=== PATIENT | female | born 1990 | race Two or more races ===

== ENCOUNTER 2019-01-21 22:07 | Emergency (ER) | payer SELFPAY ==
[~2019-01-21] VITALS: Ht 149.9 cm; Wt 52.8 kg
[2019-01-21 22:29] VITALS: BP 112/71
[2019-01-21 22:58] LABS: Basophils # (auto) 0.1 uL; Basophils % (auto) 0.6 % (0.0-2.0); Eosinophils # (auto) 0.5 uL; Eosinophils % (auto) 4.9 % (0.0-7.0); Hematocrit 34.5 % (36.0-46.0); Hemoglobin 11.7 g/dL (12.2-16.2); Lymphocytes % (auto) 31.1 % (10.0-50.0); Mean Corpuscular Hemoglobin 29.8 pg (28.0-32.0); Mean Corpuscular Hgb Conc. 33.8 g/dL (32.0-36.0); Mean Corpuscular Volume 88.1 fL (80.0-100.0); Monocytes # (auto) 0.7 uL; Monocytes % (auto) 7.1 % (0.0-12.0); Neutrophils # (auto) 5.4 uL; Neutrophils % (auto) 56.3 % (37.0-80.0); Platelet Count (auto) 235 10^3/uL (140-450); Red Blood Cells 3.92 10^6/uL (4.0-5.20); Red Cell Distribution Width 15.2 % (11.8-14.3); White Blood Cell 9.5 10^3/uL (4.4-10.8)
[2019-01-21 23:14] LABS: Urine Bacteria FEW /hpf (None Seen); Urine Blood Negative /uL (Negative); Urine Specific Gravity 1.017 (1.001-1.035); Urine WBC 2 /hpf (0 - 5)
[2019-01-21 23:18] LABS: Alanine Aminotransferase 30 U/L (13-56); Albumin 3.3 g/dL (3.4-5.0); Anion Gap 8 (5-15); Aspartate Aminotransferase 22 U/L (15-37); BUN/Creatinine Ratio 13.6; Blood Urea Nitrogen 9 mg/dL (7-18); Calcium 8.4 mg/dL (8.5-10.1); Carbon Dioxide 26 mmol/L (21-32); Chloride 108 mmol/L (98-107); GFR African American 137 mL/min; GFR Non-African American 113 mL/min; Glucose 82 mg/dL (74-106); Lipase 146 U/L (73-393); Potassium 4.1 mmol/L (3.5-5.1); Sodium 142 mmol/L (136-145)
[2019-01-21 23:21] LABS: Alkaline Phosphatase 58 U/L (45-117); Bilirubin, Total < 0.1 mg/dL (0.2-1.0); Total Protein 6.6 g/dL (6.4-8.2)
== END 2019-01-22 02:09 | disposition left against medical advice (07) ==
LOC: EDBD 22:12 → ER 22:12
DX: R50.9 Fever, unspecified (principal); R10.9 Unspecified abdominal pain; Z53.21 Procedure and treatment not carried out due to patient leaving prior to being seen by health care provider
CPT/HCPCS: 36415; 80053; 81001; 81025; 83690; 84702; 85025

== ENCOUNTER 2019-05-05 09:27 | Emergency (ER) | payer MEDICAID ==
[~2019-05-05] VITALS: Ht 149.9 cm; Wt 49.0 kg
[2019-05-05 09:35] VITALS: BP 109/64
== END 2019-05-05 10:20 | disposition home or self-care (01) ==
LOC: ER 09:28
DX: L02.414 Cutaneous abscess of left upper limb (principal)

== ENCOUNTER 2019-08-15 16:11 | Observation (INO) | payer MEDICAID, OTHER ==
[~2019-08-15] VITALS: Ht 152.4 cm; Wt 61.2 kg
[2019-08-15 17:16] VITALS: BP 108/69
[2019-08-15] MEDS ORDERED: DOCU-94 PO (19:24)
[2019-08-15] MEDS ORDERED: FOLI1TAB6 PO (19:24)
[2019-08-15] MEDS ORDERED: MULTCAP45 PO (19:24)
[2019-08-15] MEDS ORDERED: PREN-153 OR (19:24)
== END 2019-08-15 19:05 | disposition home or self-care (01) | DRG 566 ==
LOC: ER 16:11 → LDRP 17:20
PROVIDERS: ADMIT Obstetrics & Gynecology; ATTEND Obstetrics & Gynecology
DX: O26.892 Other specified pregnancy related conditions, second trimester (principal); M54.9 Dorsalgia, unspecified; R10.31 Right lower quadrant pain; R42 Dizziness and giddiness; Z3A.22 22 weeks gestation of pregnancy
CPT/HCPCS: 59025; 81002; 99284; G0378

== ENCOUNTER 2019-09-28 17:33 | Observation (INO) | payer OTHER ==
[~2019-09-28] VITALS: Ht 152.4 cm; Wt 61.2 kg
[~2019-09-28 17:33] MED LIST: DOCU-94 PO; FOLI1TAB6 PO; MULTCAP45 PO; PREN-153 OR
[2019-09-28 17:56] VITALS: BP 126/68
[2019-09-28 19:25] LABS: Alcohol, Urine < 3.0 mg/dL (0-5); Amphetamine Screen, Urine NEGATIVE (NEGATIVE); Barbiturate Scree,Urine NEGATIVE (NEGATIVE); Benzodiazephine Screen, Urine NEGATIVE (NEGATIVE); Cannabinoid Screen, Urine NEGATIVE (NEGATIVE); Cocaine Screen, Urine NEGATIVE (NEGATIVE); Opiate Scree,Urine NEGATIVE (NEGATIVE); Phencyclidine Screen, Urine NEGATIVE (NEGATIVE)
== END 2019-09-28 20:57 | disposition home or self-care (01) | DRG 566 ==
LOC: ER 17:33 → LDRP 17:34
PROVIDERS: ADMIT Obstetrics & Gynecology; ATTEND Obstetrics & Gynecology
DX: O36.8130 Decreased fetal movements, third trimester, not applicable or unspecified (principal); D89.9 Disorder involving the immune mechanism, unspecified; O99.113 Other diseases of the blood and blood-forming organs and certain disorders involving the immune mechanism complicating pregnancy, third trimester; Z3A.28 28 weeks gestation of pregnancy
CPT/HCPCS: 59025; 76805; 80307; 81002; G0378

== ENCOUNTER 2019-10-30 19:40 | Observation (INO) | payer OTHER | END 2019-10-30 22:53 | disposition home or self-care (01) | DRG 566 | LOC: LDRP 19:40 | PROVIDERS: ADMIT Specialist; ATTEND Specialist | DX: O62.9 Abnormality of forces of labor, unspecified (principal); O21.2 Late vomiting of pregnancy; Z3A.31 31 weeks gestation of pregnancy | CPT/HCPCS: 59025; 76815; 81002; G0378 ==

== ENCOUNTER 2019-11-22 20:10 | Observation (INO) | payer OTHER ==
[2019-11-22 21:06] LABS: Alcohol, Urine < 3.0 mg/dL (0-10); Amphetamine Screen, Urine NEGATIVE (NEGATIVE); Barbiturate Scree,Urine NEGATIVE (NEGATIVE); Benzodiazephine Screen, Urine NEGATIVE (NEGATIVE); Cannabinoid Screen, Urine NEGATIVE (NEGATIVE); Cocaine Screen, Urine NEGATIVE (NEGATIVE); Opiate Scree,Urine NEGATIVE (NEGATIVE); Phencyclidine Screen, Urine NEGATIVE (NEGATIVE)
[2019-11-22 21:17] LABS: Urine Amorphous Crystal FEW /hpf (None Seen); Urine Blood Negative /uL (Negative); Urine Mucus FEW (None Seen); Urine Specific Gravity 1.007 (1.001-1.035); Urine WBC 21 /hpf (0 - 5)
[2019-11-22 21:23] LABS: Urine Bacteria FEW /hpf (None Seen)
[2019-11-22] MEDS ORDERED: DIPHENOXYLATE W/ATROPINE 2.5 MG TAB PO ONE (21:30)
[2019-11-22] MEDS ORDERED: ONDANSETRON HCL 4 MG/2 ML VIAL IV ONE (21:30)
[2019-11-22] MEDS ORDERED: DIPHENOXYLATE W/ATROPINE 2.5 MG TAB ONE (22:13)
[2019-11-22] MEDS ORDERED: LACTATED RINGER'S 1,000 ML IV ONE (22:14)
[2019-11-22 23:19] LABS: Basophils # (auto) 0 10 ^3/uL (0-0.2); Basophils % (auto) 0.3 % (0.0-2.0); Eosinophils # (auto) 0.2 10 ^3/uL (0-0.8); Eosinophils % (auto) 1.8 % (0.0-7.0); Hematocrit 31.8 % (36.0-46.0); Lymphocytes # (auto) 2.3 10 ^3/uL (0.4-5.4); Lymphocytes % (auto) 21.5 % (10.0-50.0); Mean Corpuscular Hemoglobin 30.2 pg (28.0-32.0); Mean Corpuscular Hgb Conc. 34.6 g/dL (32.0-36.0); Mean Corpuscular Volume 87.2 fL (80.0-100.0); Monocytes # (auto) 0.8 10 ^3/uL (0-1.3); Monocytes % (auto) 7.3 % (0.0-12.0); Neutrophils # (auto) 7.4 10 ^3/uL (1.6-8.6); Neutrophils % (auto) 69.1 % (37.0-80.0); Nucleated Red Blood Cells % 0.1 %; Platelet Count (auto) 184 10^3/uL (140-450); Red Blood Cells 3.65 10^6/uL (4.0-5.20); Red Cell Distribution Width 14.2 % (11.8-14.3); White Blood Cell 10.6 10^3/uL (4.4-10.8)
[2019-11-22 23:35] LABS: Albumin 2.5 g/dL (3.4-5.0); Calcium 8.4 mg/dL (8.5-10.1); Potassium 3.3 mmol/L (3.5-5.1)
[2019-11-22 23:37] LABS: Bilirubin, Total 0.2 mg/dL (0.2-1.0); Total Protein 6.3 g/dL (6.4-8.2)
[2019-11-22 23:53] LABS: BUN/Creatinine Ratio 8.9
[2019-11-23] MEDS ORDERED: POTASSIUM CHL 20 Meq TABLET PO ONE
== END 2019-11-23 00:22 | disposition home or self-care (01) | DRG 566 ==
LOC: LDRP 20:10
PROVIDERS: ADMIT Specialist; ATTEND Specialist
DX: O21.8 Other vomiting complicating pregnancy (principal); R10.9 Unspecified abdominal pain; R19.7 Diarrhea, unspecified; Z3A.36 36 weeks gestation of pregnancy
CPT/HCPCS: 36415; 59025; 76818; 80053; 80307; 81001; 81002; 82962; 85025; 96361; 96374; G0378; J2405

== ENCOUNTER 2019-11-23 15:05 | Observation (INO) | payer OTHER ==
[2019-11-23 16:41] LABS: Amphetamine Screen, Urine NEGATIVE (NEGATIVE); Barbiturate Scree,Urine NEGATIVE (NEGATIVE); Benzodiazephine Screen, Urine NEGATIVE (NEGATIVE); Cannabinoid Screen, Urine NEGATIVE (NEGATIVE); Cocaine Screen, Urine NEGATIVE (NEGATIVE); Opiate Scree,Urine NEGATIVE (NEGATIVE); Phencyclidine Screen, Urine NEGATIVE (NEGATIVE)
[2019-11-23 17:02] LABS: Alcohol, Urine < 3.0 mg/dL (0-10)
== END 2019-11-23 20:20 | disposition home or self-care (01) | DRG 566 ==
LOC: LDRP 15:05
PROVIDERS: ADMIT Specialist; ATTEND Specialist
DX: O26.893 Other specified pregnancy related conditions, third trimester (principal); M79.89 Other specified soft tissue disorders; R19.7 Diarrhea, unspecified; R11.2 Nausea with vomiting, unspecified; Z3A.36 36 weeks gestation of pregnancy
CPT/HCPCS: 59025; 76817; 76818; 80307; 81002; G0378

== ENCOUNTER 2019-12-27 19:44 | Emergency (ER) | payer MEDICAID, OTHER ==
[~2019-12-27] VITALS: Ht 152.4 cm; Wt 54.4 kg
[2019-12-27 21:25] LABS: Basophils # (auto) 0.1 10 ^3/uL (0-0.2); Basophils % (auto) 0.2 % (0.0-2.0); Eosinophils # (auto) 0.1 10 ^3/uL (0-0.8); Eosinophils % (auto) 0.4 % (0.0-7.0); Hematocrit 36.1 % (36.0-46.0); Hemoglobin 11.6 g/dL (12.2-16.2); Lymphocytes # (auto) 1.8 10 ^3/uL (0.4-5.4); Lymphocytes % (auto) 8.7 % (10.0-50.0); Mean Corpuscular Hemoglobin 27.9 pg (28.0-32.0); Mean Corpuscular Hgb Conc. 32.2 g/dL (32.0-36.0); Mean Corpuscular Volume 86.5 fL (80.0-100.0); Monocytes # (auto) 0.6 10 ^3/uL (0-1.3); Neutrophils # (auto) 18.2 10 ^3/uL (1.6-8.6); Neutrophils % (auto) 87.7 % (37.0-80.0); Platelet Count (auto) 390 10^3/uL (140-450); Red Blood Cells 4.17 10^6/uL (4.0-5.20); Red Cell Distribution Width 15.6 % (11.8-14.3); White Blood Cell 20.7 10^3/uL (4.4-10.8)
[2019-12-27 21:37] LABS: INR 1.11 (0.9-1.15); Partial Thromboplastin Time 26.4 sec (23.64-32.05)
[2019-12-27 21:46] LABS: Calcium 8.2 mg/dL (8.5-10.1); Potassium 4.1 mmol/L (3.5-5.1)
[2019-12-27 21:48] LABS: BUN/Creatinine Ratio 21.2
[2019-12-27 21:51] LABS: Bilirubin, Total 0.2 mg/dL (0.2-1.0); Total Protein 6.7 g/dL (6.4-8.2)
[2019-12-27 22:31] VITALS: BP 106/64
[2019-12-27] MEDS ORDERED: cefTRIAXone 1GM/50ML D5W 50 ML IV ONE (22:45)
[2019-12-27] MEDS ORDERED: HYDROcodone-ACET 5/325MG TAB PO ONE (22:45)
[2019-12-27] MEDS ORDERED: METHYLERGONOVINE MALEATE 0.2 MG/ML AMP IM ONE (23:00)
== END 2019-12-28 01:00 | disposition home or self-care (01) ==
LOC: ER 19:44 → EDBD 19:44 → ER 12-28 01:00
DX: O72.1 Other immediate postpartum hemorrhage (principal); N93.8 Other specified abnormal uterine and vaginal bleeding; D72.829 Elevated white blood cell count, unspecified
CPT/HCPCS: 36415; 76856; 80053; 85025; 85610; 85730; 96365; 96372; 99284; J0696; J2210

== ENCOUNTER 2021-10-03 15:37 | Observation (INO) | payer OTHER ==
[~2021-10-03] VITALS: Ht 152.4 cm; Wt 73.5 kg
[~2021-10-03 15:37] MED LIST changes: -PREN-153 OR; +PREN1TAB71 OR
[2021-10-03 16:40] LABS: Urine Bacteria FEW /hpf (None Seen); Urine Blood Negative /uL (Negative); Urine Mucus FEW (None Seen); Urine Specific Gravity 1.026 (1.001-1.035); Urine WBC 13 /hpf (0 - 5)
[2021-10-03] MEDS ORDERED: NITR-87 PO (16:50)
[2021-10-03] MEDS ORDERED: NITROFURANTOIN 100 mg CAP PO ONE (17:00)
[2021-10-03 17:05] VITALS: BP 109/52
== END 2021-10-03 19:17 | disposition home or self-care (01) ==
LOC: ER 15:37 → LDRP 17:19
PROVIDERS: ADMIT Obstetrics & Gynecology; ATTEND Obstetrics & Gynecology
DX: O26.893 Other specified pregnancy related conditions, third trimester (principal); R19.00 Intra-abdominal and pelvic swelling, mass and lump, unspecified site; R10.9 Unspecified abdominal pain; O23.43 Unspecified infection of urinary tract in pregnancy, third trimester; O99.613 Diseases of the digestive system complicating pregnancy, third trimester; K42.9 Umbilical hernia without obstruction or gangrene; Z3A.38 38 weeks gestation of pregnancy; Z79.899 Other long term (current) drug therapy
CPT/HCPCS: 59025; 81001; 81002; 99284; G0378

== ENCOUNTER 2022-10-17 09:52 | Emergency (ER) | payer OTHER ==
[~2022-10-17] VITALS: Ht 152.4 cm; Wt 58.0 kg
[~2022-10-17 09:52] MED LIST changes: +NITR-87 PO
[2022-10-17 10:54] LABS: Urine Bacteria FEW /hpf (None Seen); Urine Blood 3+ /uL (Negative); Urine Mucus FEW (None Seen); Urine Specific Gravity 1.027 (1.001-1.035); Urine WBC 7 /hpf (0 - 5)
[2022-10-17 10:58] LABS: Basophils # (auto) 0 10 ^3/uL (0-0.2); Basophils % (auto) 0.5 % (0.0-2.0); Eosinophils # (auto) 0.2 10 ^3/uL (0-0.8); Eosinophils % (auto) 2.7 % (0.0-7.0); Hemoglobin 13.1 g/dL (12.2-16.2); Lymphocytes # (auto) 2.4 10 ^3/uL (0.4-5.4); Lymphocytes % (auto) 31.8 % (10.0-50.0); Mean Corpuscular Hemoglobin 29.6 pg (28.0-32.0); Mean Corpuscular Hgb Conc. 34.4 g/dL (32.0-36.0); Mean Corpuscular Volume 86.2 fL (80.0-100.0); Monocytes # (auto) 0.5 10 ^3/uL (0-1.3); Monocytes % (auto) 6.4 % (0.0-12.0); Neutrophils # (auto) 4.4 10 ^3/uL (1.6-8.6); Neutrophils % (auto) 58.6 % (37.0-80.0); Nucleated Red Blood Cells % 0.1 %; Red Blood Cells 4.41 10^6/uL (4.0-5.20); Red Cell Distribution Width 14.5 % (11.8-14.3); White Blood Cell 7.5 10^3/uL (4.4-10.8)
[2022-10-17 11:03] LABS: Albumin 3.6 g/dL (3.4-5.0); BUN/Creatinine Ratio 18.6 (10.0-20.0); Calcium 9.1 mg/dL (8.5-10.1); Potassium 3.9 mmol/L (3.5-5.1)
[2022-10-17 11:05] LABS: Bilirubin, Total 0.3 mg/dL (0.2-1.0); Total Protein 7.1 g/dL (6.4-8.2)
[2022-10-17] MEDS ORDERED: CEPH-510 PO (13:30)
[2022-10-17 15:50] VITALS: BP 96/56
== END 2022-10-17 15:55 | disposition home or self-care (01) ==
LOC: ER 09:52
DX: O23.41 Unspecified infection of urinary tract in pregnancy, first trimester (principal); N39.0 Urinary tract infection, site not specified; R10.2 Pelvic and perineal pain; Z79.899 Other long term (current) drug therapy; Z3A.01 Less than 8 weeks gestation of pregnancy
CPT/HCPCS: 36415; 76801; 76817; 80053; 81001; 84702; 85025

== ENCOUNTER 2023-10-30 03:45 | Emergency (ER) | payer OTHER ==
[~2023-10-30] VITALS: Ht 152.4 cm; Wt 58.2 kg
[~2023-10-30 03:45] MED LIST changes: +CEPH-510 PO; +FOLI-119 PO; -FOLI1TAB6 PO
[2023-10-30 03:59] VITALS: BP 103/53; PULSE 63; RESP 16; O2SAT 98
[2023-10-30 04:26] LABS: Basophils # (auto) 0.1 10 ^3/uL (0-0.2); Basophils % (auto) 0.8 % (0.0-2.0); Eosinophils # (auto) 0.2 10 ^3/uL (0-0.8); Eosinophils % (auto) 2.3 % (0.0-7.0); Hematocrit 38.7 % (36.0-46.0); Hemoglobin 13.2 g/dL (12.2-16.2); Lymphocytes # (auto) 2.5 10 ^3/uL (0.4-5.4); Mean Corpuscular Hemoglobin 29.1 pg (28.0-32.0); Mean Corpuscular Volume 85.7 fL (80.0-100.0); Monocytes # (auto) 0.7 10 ^3/uL (0-1.3); Monocytes % (auto) 7.1 % (0.0-12.0); Neutrophils # (auto) 6.4 10 ^3/uL (1.6-8.6); Neutrophils % (auto) 64.8 % (37.0-80.0); Red Blood Cells 4.52 10^6/uL (4.0-5.20); Red Cell Distribution Width 15.1 % (11.8-14.3); White Blood Cell 9.9 10^3/uL (4.4-10.8)
[2023-10-30 04:45] LABS: Alanine Aminotransferase 14 U/L (7-40); Albumin 4.4 g/dL (3.2-4.8); Alkaline Phosphatase 52 U/L (46-116); Anion Gap 8 (5-15); Aspartate Aminotransferase 29 U/L (13-40); BUN/Creatinine Ratio 20.5 (10.0-20.0); Blood Urea Nitrogen 16 mg/dL (9-23); Calcium 9.9 mg/dL (8.5-10.1); Carbon Dioxide 25 mmol/L (20-30); Chloride 108 mmol/L (98-107); Glucose 82 mg/dL (74-106); Potassium 3.6 mmol/L (3.5-5.1); Sodium 141 mmol/L (136-145)
[2023-10-30] MEDS ORDERED: DICYCLOMINE HCL (10MG/ML) 2 ML AMPULE IM ONE (04:45)
[2023-10-30] MEDS ORDERED: ONDANSETRON ODT 4 MG TAB PO ONE (04:45)
[2023-10-30 04:46] LABS: Bilirubin, Total 0.3 mg/dL (0.2-1.0)
[2023-10-30 04:49] LABS: Urine Bacteria None Seen /hpf (None Seen)
[2023-10-30] MEDS ORDERED: ZOFR4T PO (04:57)
[2023-10-30] MEDS ORDERED: DICY10CA PO (04:57)
[2023-10-30 04:59] LABS: Urine Blood Negative /uL (Negative); Urine Clarity Turbid (Clear); Urine Color Light-Yellow (Yellow); Urine Protein, UAD Negative (Negative); Urine Specific Gravity 1.023 (1.001-1.035); Urine Urobilinogen Normal (Negative); Urine WBC 1 /hpf (0 - 5)
[2023-10-30 13:18] LABS: Lipase 54 U/L (12-53)
== END 2023-10-30 08:05 | disposition left against medical advice (07) ==
LOC: ER 03:45
DX: K80.20 Calculus of gallbladder without cholecystitis without obstruction (principal); R10.2 Pelvic and perineal pain
CPT/HCPCS: 36415; 80053; 81001; 83690; 84702; 85025

== ENCOUNTER 2024-02-25 00:19 | Inpatient (IN) | payer OTHER ==
[~2024-02-25] VITALS: Ht 167.6 cm; Wt 46.6 kg
[~2024-02-25 00:19] MED LIST changes: +DICY10CA PO; +ZOFR4T PO
[2024-02-25 00:59] VITALS: PULSE 60; O2SAT 98
[2024-02-25 01:17] LABS: Basophils # (auto) 0.1 10 ^3/uL (0-0.2); Basophils % (auto) 0.7 % (0.0-2.0); Eosinophils # (auto) 0.2 10 ^3/uL (0-0.8); Eosinophils % (auto) 3.4 % (0.0-7.0); Hematocrit 33.1 % (36.0-46.0); Hemoglobin 11.7 g/dL (12.2-16.2); Lymphocytes # (auto) 3.4 10 ^3/uL (0.4-5.4); Lymphocytes % (auto) 46.5 % (10.0-50.0); Mean Corpuscular Hemoglobin 30.1 pg (28.0-32.0); Mean Corpuscular Hgb Conc. 35.5 g/dL (32.0-36.0); Mean Corpuscular Volume 84.9 fL (80.0-100.0); Monocytes # (auto) 0.6 10 ^3/uL (0-1.3); Monocytes % (auto) 7.9 % (0.0-12.0); Neutrophils % (auto) 41.5 % (37.0-80.0); Platelet Count (auto) 116 10^3/uL (140-450); Red Cell Distribution Width 14.3 % (11.8-14.3); White Blood Cell 7.3 10^3/uL (4.4-10.8)
[2024-02-25] MEDS: MORPHINE SULFATE 4 MG/ML SYR/VIAL IV ONE (01:22)
[2024-02-25] MEDS: ONDANSETRON HCL 4 MG/2 ML VIAL IV ONE ×2 (01:23→03:18)
[2024-02-25 01:28] LABS: Alanine Aminotransferase 13 U/L (7-40); Albumin 3.4 g/dL (3.2-4.8); Alkaline Phosphatase 40 U/L (46-116); Anion Gap 5 (5-15); Aspartate Aminotransferase 14 U/L (13-40); BUN/Creatinine Ratio 16.2 (10.0-20.0); Bilirubin, Total 0.4 mg/dL (0.2-1.0); Blood Urea Nitrogen 11 mg/dL (9-23); Calcium 8.6 mg/dL (8.7-10.4); Carbon Dioxide 23 mmol/L (20-30); Chloride 112 mmol/L (98-107); Glucose 93 mg/dL (74-106); Potassium 2.6 mmol/L (3.5-5.1); Sodium 140 mmol/L (136-145); Total Protein 5.7 g/dL (5.7-8.2)
[2024-02-25] MEDS: POTASSIUM CHL 20 Meq TABLET PO ONE (03:12)
[2024-02-25] MEDS: POTASSIUM CHL 20MEQ/100ML 100 ML IV ONE (03:12)
[2024-02-25] MEDS: SODIUM CHLORIDE 0.9% 1,000 ML IV ONE (05:14)
[2024-02-25] MEDS: levoFLOXacin 500MG 100 ML IV ONE (06:13)
[2024-02-25 06:49] LABS: Basophils # (auto) 0 10 ^3/uL (0-0.2); Basophils % (auto) 0.7 % (0.0-2.0); Eosinophils # (auto) 0.2 10 ^3/uL (0-0.8); Eosinophils % (auto) 3.1 % (0.0-7.0); Hemoglobin 11.5 g/dL (12.2-16.2); Lymphocytes # (auto) 2.2 10 ^3/uL (0.4-5.4); Lymphocytes % (auto) 33.7 % (10.0-50.0); Mean Corpuscular Hemoglobin 29.6 pg (28.0-32.0); Mean Corpuscular Hgb Conc. 34.8 g/dL (32.0-36.0); Mean Corpuscular Volume 84.9 fL (80.0-100.0); Monocytes # (auto) 0.5 10 ^3/uL (0-1.3); Monocytes % (auto) 8.5 % (0.0-12.0); Neutrophils # (auto) 3.4 10 ^3/uL (1.6-8.6); Nucleated Red Blood Cells % 0.1 %; Platelet Count (auto) 106 10^3/uL (140-450); Red Blood Cells 3.88 10^6/uL (4.0-5.20); Red Cell Distribution Width 14.2 % (11.8-14.3); White Blood Cell 6.4 10^3/uL (4.4-10.8)
[2024-02-25 07:06] LABS: Alanine Aminotransferase 21 U/L (7-40); Albumin 3.3 g/dL (3.2-4.8); Alkaline Phosphatase 38 U/L (46-116); Anion Gap 7 (5-15); Aspartate Aminotransferase 15 U/L (13-40); BUN/Creatinine Ratio 19.4 (10.0-20.0); Blood Urea Nitrogen 12 mg/dL (9-23); Calcium 8.3 mg/dL (8.7-10.4); Carbon Dioxide 21 mmol/L (20-30); Chloride 114 mmol/L (98-107); Glucose 84 mg/dL (74-106); Potassium 2.9 mmol/L (3.5-5.1); Sodium 142 mmol/L (136-145)
[2024-02-25 07:07] LABS: Bilirubin, Total 0.5 mg/dL (0.2-1.0); Total Protein 5.5 g/dL (5.7-8.2)
[2024-02-25 10:00] VITALS: PULSE 63; RESP 12; O2SAT 100
[2024-02-25] MEDS ORDERED: SODIUM CHLORIDE 0.9% 1,000 ML IV SCH (11:30)
[2024-02-25] MEDS ORDERED: ONDANSETRON HCL 4 MG/2 ML VIAL IV PRN ×2 (11:30→11:45)
[2024-02-25] MEDS ORDERED: HYDROcodone-ACET 5/325MG TAB PO PRN ×2 (11:30→11:45)
[2024-02-25] MEDS ORDERED: MAGNESIUM SULFATE 1GM/100ML 100 ML IV SCH (12:00)
[2024-02-25] MEDS: PANTOPRAZOLE 40 MG/10 ML VIAL INJ IV ONE (12:31)
[2024-02-25] MEDS: MAGNESIUM SULFATE 1GM/100ML 100 ML IV SCH (12:32)
[2024-02-25] MEDS: SODIUM CHLORIDE 0.9% 1,000 ML IV SCH (12:47)
[2024-02-25 14:15] LABS: Urine Bacteria None Seen /hpf (None Seen)
[2024-02-25 14:26] LABS: Urine Blood 3+ /uL (Negative); Urine Clarity Turbid (Clear); Urine Color Yellow (Yellow); Urine Mucus FEW (None Seen); Urine Protein, UAD TRACE (Negative); Urine Specific Gravity 1.024 (1.001-1.035); Urine Urobilinogen Normal (Negative); Urine WBC 19 /hpf (0 - 5)
[2024-02-25 17:55] VITALS: PULSE 68; RESP 17; O2SAT 94
[2024-02-25 17:56] VITALS: BP 103/41; PULSE 68; RESP 17; TEMP 98; O2SAT 94
[2024-02-25 19:34] LABS: Chloride 111 mmol/L (98-107); Potassium 3.3 mmol/L (3.5-5.1); Sodium 139 mmol/L (136-145)
[2024-02-25 19:35] LABS: Anion Gap 8 (5-15); Carbon Dioxide 20 mmol/L (20-30)
[2024-02-25 19:36] LABS: Calcium 8.4 mg/dL (8.7-10.4)
[2024-02-25 19:40] LABS: Glucose 82 mg/dL (74-106)
[2024-02-25 19:42] LABS: BUN/Creatinine Ratio 9.6 (10.0-20.0); Blood Urea Nitrogen < 5 mg/dL (9-23)
[2024-02-25 21:00] VITALS: BP 92/60; PULSE 63; RESP 16; TEMP 98.2; O2SAT 99
[2024-02-26] VITALS (7 sets, daily range): BP systolic 90–107; BP diastolic 54–66; PULSE 54–79; RESP 16–17; TEMP 97.7–98.2; O2SAT 94–100
[2024-02-26 05:53] LABS: Basophils # (auto) 0 10 ^3/uL (0-0.2); Basophils % (auto) 0.8 % (0.0-2.0); Eosinophils # (auto) 0.3 10 ^3/uL (0-0.8); Eosinophils % (auto) 6.3 % (0.0-7.0); Hemoglobin 11.2 g/dL (12.2-16.2); Lymphocytes # (auto) 2.8 10 ^3/uL (0.4-5.4); Lymphocytes % (auto) 52.7 % (10.0-50.0); Mean Corpuscular Hgb Conc. 35.1 g/dL (32.0-36.0); Mean Corpuscular Volume 85.6 fL (80.0-100.0); Monocytes # (auto) 0.4 10 ^3/uL (0-1.3); Monocytes % (auto) 7.6 % (0.0-12.0); Neutrophils # (auto) 1.7 10 ^3/uL (1.6-8.6); Neutrophils % (auto) 32.6 % (37.0-80.0); Nucleated Red Blood Cells % 0.2 %; Platelet Count (auto) 95 10^3/uL (140-450); Red Blood Cells 3.74 10^6/uL (4.0-5.20); Red Cell Distribution Width 14.5 % (11.8-14.3); White Blood Cell 5.4 10^3/uL (4.4-10.8)
[2024-02-26 07:12] LABS: Anion Gap 5 (5-15); Carbon Dioxide 22 mmol/L (20-30); Chloride 113 mmol/L (98-107); Potassium 3.3 mmol/L (3.5-5.1); Sodium 140 mmol/L (136-145)
[2024-02-26 07:13] LABS: Calcium 8.4 mg/dL (8.7-10.4)
[2024-02-26 07:17] LABS: Glucose 76 mg/dL (74-106)
[2024-02-26 07:18] LABS: Magnesium 1.9 mg/dL (1.6-2.6); Triglycerides 69 mg/dL (< 150)
[2024-02-26 07:19] LABS: LDL Cholesterol 31 mg/dL (< 100)
[2024-02-26 07:20] LABS: Cholesterol 69 mg/dL (< 200); HDL Cholesterol 25 mg/dL (40-59); Phosphorus 2.9 mg/dL (2.4-5.1)
[2024-02-26 07:23] LABS: BUN/Creatinine Ratio 10.2 (10.0-20.0); Blood Urea Nitrogen < 5 mg/dL (9-23)
[2024-02-26 07:57] LABS: Lipase 49 U/L (12-53)
[2024-02-26] MEDS: PANTOPRAZOLE 40 MG/10 ML VIAL INJ IV SCH (09:13)
[2024-02-26] MEDS: MAGNESIUM SULFATE 1GM/100ML 100 ML IV ONE (09:21)
[2024-02-26 09:38] LABS: Hepatitis B Surface Antigen Negative (Negative)
[2024-02-26 09:58] LABS: Hepatitis A Ab IgM Negative
[2024-02-26 09:59] LABS: Hepatitis B Core IgM Negative
[2024-02-26 10:00] LABS: Hepatitis C Antibody Negative (Negative)
[2024-02-26] MEDS: POTASSIUM CHL 20MEQ/100ML 100 ML IV SCH (10:21)
[2024-02-26 10:24] LABS: INR 1.29 (0.9-1.15); Partial Thromboplastin Time 30.8 SEC (24.5-34.5); Prothrombin Time 13.4 sec (9.3-11.8)
[2024-02-26] MEDS ORDERED: ACETAMINOPHEN 325 MG TAB PO PRN (10:30)
[2024-02-26 14:28] LABS: % Iron Saturation 26.7 % (15-50)
[2024-02-26 15:12] LABS: Ferritin 77.2 ng/mL (10-291)
[2024-02-26] MEDS: cefTRIAXone 1GM/50ML D5W 50 ML IV ONE (15:35)
[2024-02-27] VITALS (7 sets, daily range): BP systolic 96–102; BP diastolic 56–64; PULSE 65–85; RESP 16–18; TEMP 97.5–98.6; O2SAT 97–100
[2024-02-27 05:15] LABS: Amphetamine Screen, Urine Neg (NEGATIVE); Barbiturate Scree,Urine Neg (NEGATIVE); Benzodiazephine Screen, Urine Neg (NEGATIVE); Cocaine Screen, Urine Neg (NEGATIVE); Opiate Scree,Urine Neg (NEGATIVE); Phencyclidine Screen, Urine Neg (NEGATIVE)
[2024-02-27 05:16] LABS: Cannabinoid Screen, Urine Neg (NEGATIVE)
[2024-02-27 06:36] LABS: Anion Gap 9 (5-15); Carbon Dioxide 18 mmol/L (20-30); Chloride 114 mmol/L (98-107); Potassium 3.2 mmol/L (3.5-5.1); Sodium 141 mmol/L (136-145)
[2024-02-27 06:37] LABS: Calcium 8.2 mg/dL (8.7-10.4)
[2024-02-27 06:42] LABS: Glucose 69 mg/dL (74-106)
[2024-02-27 06:45] LABS: BUN/Creatinine Ratio 10.4 (10.0-20.0); Blood Urea Nitrogen < 5 mg/dL (9-23)
[2024-02-27 06:50] LABS: Basophils # (auto) 0.1 10 ^3/uL (0-0.2); Basophils % (auto) 0.9 % (0.0-2.0); Eosinophils # (auto) 0.3 10 ^3/uL (0-0.8); Eosinophils % (auto) 5.3 % (0.0-7.0); Hematocrit 34.4 % (36.0-46.0); Hemoglobin 12.1 g/dL (12.2-16.2); Lymphocytes # (auto) 2.4 10 ^3/uL (0.4-5.4); Mean Corpuscular Hemoglobin 30.6 pg (28.0-32.0); Mean Corpuscular Hgb Conc. 35.2 g/dL (32.0-36.0); Monocytes # (auto) 0.4 10 ^3/uL (0-1.3); Monocytes % (auto) 7.7 % (0.0-12.0); Neutrophils # (auto) 2.6 10 ^3/uL (1.6-8.6); Neutrophils % (auto) 44.1 % (37.0-80.0); Nucleated Red Blood Cells % 0.2 %; Platelet Count (auto) 101 10^3/uL (140-450); Red Blood Cells 3.95 10^6/uL (4.0-5.20); Red Cell Distribution Width 14.3 % (11.8-14.3); White Blood Cell 5.8 10^3/uL (4.4-10.8)
[2024-02-27 10:34] LABS: Folate (Folic Acid) 16.13 ng/mL (>5.38)
[2024-02-27] MEDS: LACTULOSE 20Gm/30ML SOLN PO ONE (12:19)
[2024-02-27] MEDS: POTASSIUM CHL 20MEQ/100ML 100 ML IV ONE (12:19)
[2024-02-27] MEDS: cefTRIAXone 1GM/50ML D5W 50 ML IV SCH (12:20)
[2024-02-27] MEDS: POTASSIUM EFFERVESENT TAB 25 MEQ PO ONE (13:15)
[2024-02-27] MEDS: MAGNESIUM OXIDE 400 MG TAB PO ONE (13:15)
[2024-02-27] MEDS ORDERED: ACET-1882 PO (14:31)
[2024-02-27] MEDS ORDERED: NITR-52 PO (14:43)
[2024-02-27] MEDS ORDERED: POTA-228 PO (17:39)
[2024-02-29 07:07] LABS: Chlamydia Trachomatis, NAA Negative (Negative); Neisseria gonorrhoeae, NAA Negative (Negative)
== END 2024-02-27 19:45 | disposition home or self-care (01) | DRG 249 ==
LOC: EDBD 00:19 → ER 00:19 → OVERFLOW 11:31 → ER 11:31 → CENTRAL 17:46
PROVIDERS: ADMIT Internal Medicine Pulmonary Disease; ATTEND Internal Medicine Pulmonary Disease
DX: K52.9 Noninfective gastroenteritis and colitis, unspecified (principal); D69.6 Thrombocytopenia, unspecified; E87.6 Hypokalemia; N93.9 Abnormal uterine and vaginal bleeding, unspecified; N39.0 Urinary tract infection, site not specified; D50.0 Iron deficiency anemia secondary to blood loss (chronic); E55.9 Vitamin D deficiency, unspecified; Z90.49 Acquired absence of other specified parts of digestive tract; Z79.899 Other long term (current) drug therapy
CPT/HCPCS: 36415; 74176; 76705; 76856; 80048; 80053; 80061; 80074; 80307; 81001; 82040; 82306; 82607; 82728; 82746; 83010; 83036; 83540; 83550; 83615; 83690; 83735; 84100; 84132; 84443; 84702; 85025; 85610; 85730; 87086; 93005; G0378; J1956; J2405; J2470; J3480